=== PATIENT | male | born 1935 | race Caucasian/White ===

== ENCOUNTER 2021-10-05 15:09 | Emergency (ER) | payer OTHER ==
[2021-10-05 16:22] LABS: HEMOGLOBIN 13.4 gm/dl (14.0-17.5); RED BLOOD COUNT 4.6 M/UL (4.20-5.50); WHITE BLOOD COUNT 9.3 K/UL (4.5-11.0)
[2021-10-05 17:02] LABS: BUN/CREATININE RATIO 24 (0-10)
== END 2021-10-05 17:03 | disposition short-term general hospital (02) ==
LOC: ER1 15:09
PROVIDERS: Emergency Medicine
DX: S06.9X9A Unspecified intracranial injury with loss of consciousness of unspecified duration, initial encounter (principal); S40.011A Contusion of right shoulder, initial encounter; S60.511A Abrasion of right hand, initial encounter; Z23 Encounter for immunization; V49.40XA Driver injured in collision with unspecified motor vehicles in traffic accident, initial encounter; Y92.410 Unspecified street and highway as the place of occurrence of the external cause
CPT/HCPCS: 70450; 71045; 71260; 72125; 72170; 73030; 80053; 82550; 82553; 84484; 85025; 85610; 85730; 86850; 86900; 86901; 90471; 90714; 99285; G0480; Q9967